=== PATIENT | male | born 1930 | race Caucasian/White ===

== ENCOUNTER 2018-02-27 20:01 | Emergency (ER) | payer MEDICARE, OTHER ==
[~2018-02-27] VITALS: Ht 177.8 cm; Wt 90.7 kg
[2018-02-27] MEDS ORDERED: NORVASC2.5 MG PO (20:18)
[2018-02-27] MEDS ORDERED: TIROSINT100 MCG PO (20:18)
[2018-02-27] MEDS ORDERED: LIPITOR10 MG PO (20:18)
[2018-02-27] MEDS ORDERED: PROSCAR 5MG TABL5 MG PO (20:18)
[2018-02-27] MEDS ORDERED: OMEPRAZOLE 20 M20 M1 PO (20:19)
[2018-02-27] MEDS ORDERED: SIMBRINZA 1%-0.28 ML OPHTHALMIC (20:19)
[2018-02-27] MEDS ORDERED: TRAVATAN Z2.5 ML OPHTHALMIC (20:20)
[2018-02-27] MEDS ORDERED: CENTRUM SILVER1 EAC4 PO (20:20)
[2018-02-27] MEDS ORDERED: VITAMIN D2000 UNIT PO (20:21)
[2018-02-27] MEDS ORDERED: KRILL OIL 3001 EACH PO (20:21)
[2018-02-27 21:48] LABS: HEMATOCRIT 32.8 % (42.0-52.0); HEMOGLOBIN 10.5 gm/dL (14.0-18.0); MCHC 32.1 g/dL (28.0-37.0); MCV 83.9 fL (80.0-100.0); MPV 7.6 fl. (7.2-11.1); NUCLEATED RBCS 0 /100WBC; PLATELET COUNT* 270 thou/uL (150-400); RBC 3.91 mil/uL (4.50-6.00); RDW-CV 14.2 % (10.5-14.5); WBC 12.5 thou/uL (4.0-11.0)
[2018-02-27 21:58] LABS: CALCIUM 8.8 mg/dL (8.5-10.1); CREATININE 1.3 mg/dL (0.6-1.3)
[2018-02-27 21:59] LABS: APTT 26.4 Seconds (25.0-31.3); INR 1.1; PROTIME 10.6 Seconds (9.20-11.50)
[2018-02-27 22:02] LABS: POC CA IONIZED 4.6 mg/dL (4.5-5.3); POC CREATININE 1.2 mg/dL (0.6-1.3); POC HEMOGLOBIN 10.9 g/dL (12.0-17.0); POC POTASSIUM 3.8 mmol/L (3.5-4.9)
[2018-02-27 22:10] LABS: ALBUMIN 3.8 g/dL (3.4-5.0); TOTAL BILIRUBIN 0.4 mg/dL (<0.1-1.0); TOTAL PROTEIN 7.5 g/dL (6.4-8.2); TROPONIN-I LEVEL 0.35 ng/mL (<0.06)
[2018-02-27 22:17] LABS: ABSOLUTE BASOPHILS 0.3 thou/uL (0.0-0.2); ABSOLUTE EOSINOPHILS 0.1 thou/uL (0.0-0.7); ABSOLUTE LYMPHOCYTES 1.6 thou/uL (0.8-5.3); ABSOLUTE MONOCYTES 0.5 thou/uL (0.0-1.2)
[2018-02-27 22:18] LABS: PLATELET ESTIMATE ADEQUATE
[2018-02-27 22:35] VITALS: BP 140/58
--- NOTE | 2018-02-28 14:23 | EKG ---
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
== END 2018-02-27 22:37 | disposition short-term general hospital (02) ==
LOC: M.ERS 20:01
PROVIDERS: Emergency Medicine Emergency Medical Services; Nurse Practitioner Family
DX: I60.9 Nontraumatic subarachnoid hemorrhage, unspecified (principal); I10 Essential (primary) hypertension